=== PATIENT | female | born 1975 ===

== ENCOUNTER 2017-07-28 17:50 | Inpatient (IN) | payer OTHER ==
[2017-07-28 18:35] VITALS: BMI 35.1
[2017-07-28 18:49] LABS: BASO % 0.5 % (0-2.0); EOS % 2.2 % (0-4.5); HEMATOCRIT 33.5 % (32.4-45.2); HEMOGLOBIN 10.9 GM/dL (10.7-15.3); LYMPH % 12.5 % (8-40); MCH 27.9 pg (25.7-33.7); MCHC 32.4 g/dl (32.0-36.0); MEAN CELL VOLUME 85.9 fl (80-96); MEAN PLT VOLUME 9.7 fl (7.5-11.1); MONO % 9.3 % (3.8-10.2); NEUT % 75.5 % (42.8-82.8); PLATELET COUNT 191 K/MM3 (134-434); RDW 15.9 % (11.6-15.6); WHITE BLOOD COUNT 7.2 K/mm3 (4.0-10.0)
--- NOTE | 2017-07-28 19:10 | HP ---
Past Medical History - Admission History of Present Illness: 42 yo @ 40 1/7 wks by first trimester ultrasound, EDC 07/27/2017 complicated by: 1. AMA - s/p reassuring cell free DNA testing, normal AFP 2. 47 lb wt gain in Normal GCT Most recent EFW 3662 gms 8 lbs 1 oz (53%) on 07/27/2017 Patient presents for postdates IOL. She denies complaints. She reports movement, denies leakage of fluid, vaginal bleeding or contractions History Source: Patient Limitations to Obtaining History: No Limitations - Past Medical History Cardiovascular: Yes: HTN Gastrointestinal: No: GERD ...: 5 ...Para: 2 ...Term: 2 ...: 0 ...Spon : 0 ...Induced : 2 ...Multiple Gestation: 0 ...LMP: 10/21/16 ... Weeks Gestation by Dates: 40.0 ...EDC by Dates: 07/28/17 ...EDC by Sono: 07/27/17 Heme/Onc: No: Anemia - Past Surgical History Past Surgical History: No: None Hx Myomectomy: No Hx Transabdominal Cerclage: No - Smoking History Smoking history: Never smoked Have you smoked in the past 12 months: No - Alcohol/Substance Use Hx Alcohol Use: No History of Substance Use: denies: None - Social History History of Recent Travel: No Home Medications - Allergies Allergies/Adverse Reactions: Allergies Allergy/AdvReac Type Severity Reaction Status Date / Time No Known Allergies Allergy Verified 07/28/17 18:35 - Home Medications Home Medications: Ambulatory Orders Pnv No.95/Ferrous Fum/Folic AC [ Vitamin Tablet] 1 each PO DAILY Family Disease History - Family Disease History Family History: Denies Review of Systems - Review of Systems Constitutional: reports: No Symptoms Neck: reports: No Symptoms Cardiovascular: reports: No Symptoms Respiratory: reports: No Symptoms Gastrointestinal: reports: No Symptoms Genitourinary: reports: No Symptoms Integumentary: reports: No Symptoms Neurological: reports: No Symptoms Hematology/Lymphatic: reports: No Symptoms Psychiatric: reports: No Symptoms Physical Exam - Maternity Vital Signs: Vital Signs Temperature 98.4 F 07/28/17 17:50 Pulse Rate 101 H 07/28/17 19:00 Respiratory Rate 20 07/28/17 19:00 Blood Pressure 124/79 07/28/17 19:00 O2 Sat by Pulse Oximetry (%) Constitutional: Yes: Well Nourished, No Distress, Calm Cardiovascular: Yes: Regular Rate and Rhythm Lungs: Clear to auscultation - Abdominal Exam/OB Fundal Height: 40 Number of Fetuses: Single Presentation: Vertex Contractions: No Category: I Accelerations: Non-Uniform Decelerations: None - Vaginal Exam/OB Vaginal Bleediing: No - Physical Exam Psychiatric: Yes: Alert, Oriented - Labs Lab Results: CBC, BMP 07/28/17 18:35 PNL: A positive; antibody negative; RPR NR; HIV neg x 2; Hep B neg; HCV neg; CF/ SMA/Fx neg; GBS neg Hemorrhage Risk Assessment - Risk Factors Medium Risk Factors: Yes: None High Risk Factors: Yes: None Risk Score: 1 Risk Level: Medium Risk Assessment/Plan 42 yo @ 40 1/7 wks for IOL 1. Admit to L&D 2. Consents reviewed and signed. Risks / benefits / alternative / complications discussed including but not limited to induction failure, uterine tachysystole, need for emergent surgery, abruption, bleeding and infection. She expressed understanding and agrees to procedure 3. GBS negative 4. Category I FHT 5. Will proceed with induction
[2017-07-28 19:11] LABS: ANION GAP 7 (8-16); BLOOD UREA NITROGEN 9 mg/dL (7-18); CALCIUM 8.5 mg/dL (8.5-10.1); CHLORIDE 108 mmol/L (98-107); CO2 25 mmol/L (21-32); CREATININE 0.8 mg/dL (0.55-1.02); GLUCOSE,RANDOM 94 mg/dL (74-106); POTASSIUM 4.1 mmol/L (3.5-5.1); SODIUM 140 mmol/L (136-145)
[2017-07-28] MEDS ORDERED: DEXTROSE 5%-LACTATED RINGERS 1,000 ML IV SCH (19:15)
[2017-07-28] MEDS ORDERED: BUTORPHANOL TARTRATE 1 MG/ML VIAL IVPB ONE (19:15)
[2017-07-28] MEDS ORDERED: PROMETHAZINE HCL 25 MG/1 ML VIAL IVPUSH ONE (19:15)
[2017-07-28] MEDS ORDERED: DINOPROSTONE 10 MG VAGINAL SUPPOSITORY VG ONE (19:15)
--- NOTE | 2017-07-28 19:41 | PN ---
Ante-Partal Exam - Subjective Subjective: Patient reports no complaints Vital Signs: Vital Signs Temperature 98.4 F 07/28/17 17:50 Pulse Rate 101 H 07/28/17 19:00 Respiratory Rate 20 07/28/17 19:00 Blood Pressure 124/79 07/28/17 19:00 O2 Sat by Pulse Oximetry (%) Bleeding: No Headache: No Visual changes: No Right upper quadrant pain: No - Contractions Contractions: No - Exam during Labor Heart Rate: 135 Variability: Moderate Category: I Monitor Accelerations: Present Monitor Decelerations: None Exam: Vaginal Dilatation (cm): 1 Effacement (%): 0 Presentation: Vertex Station: -4 - Intrapartum Hemorrhage Risk Medium Risk Factors: None High Risk Factors: None Risk Score: 0 Risk Level: Low Risk - Assessment/Plan Assessment/Plan: 42 yo IOL 1. Cervidil placed in posterior fornix. Patient tolerated well. 2. GBS neg 3. Category I FHT 4. Will offer pain medication upon patient's request
[2017-07-28 19:46] LABS: INR 1.04 (0.82-1.09); PROTHROMBIN TIME (PATIENT) 11.7 SEC (9.7-13.0)
[2017-07-28 19:49] LABS: ACTIVATED PTT 23.3 SECONDS (26.9-34.4)
[2017-07-28] MEDS: LORATADINE 10 MG TABLET PO SCH (20:25)
[2017-07-29] MEDS ORDERED: FENTANYL/BUPIVACAINE/NS/PF - PCEA - 50 ML DISP.SYRIN EP ONE (02:08)
[2017-07-29] MEDS ORDERED: ELECTROLYTE-148 SOLN 500 ML IV ONE (02:17)
[2017-07-29] MEDS ORDERED: NALOXONE HCL 0.4 MG/ML VIAL IVPUSH PRN (03:07)
--- NOTE | 2017-07-29 03:08 | PN ---
Ante-Partal Exam - Subjective Subjective: Pain improved s/p epidural Vital Signs: Vital Signs Temperature 98.2 F 07/29/17 02:00 Pulse Rate 87 07/29/17 02:00 Respiratory Rate 20 07/29/17 02:00 Blood Pressure 118/71 07/29/17 02:00 O2 Sat by Pulse Oximetry (%) Bleeding: Yes (bloody show) Headache: No Visual changes: No Right upper quadrant pain: No - Contractions Contractions: Yes Regularity: Regular Intensity: Mild Monitor Mode: External - Exam during Labor Heart Rate: 130 Variability: Moderate Category: I Monitor Accelerations: Present Monitor Decelerations: None Exam: Vaginal Dilatation (cm): 9 Effacement (%): 100 Amniotic Membrane Status: Ruptured Station: 0 - Intrapartum Hemorrhage Risk Medium Risk Factors: None High Risk Factors: None Risk Score: 0 Risk Level: Low Risk - Assessment/Plan Assessment/Plan: 42 yo IOL postdates 1. Good cervical change, cervidil removed 2. Category I FHT 3. GBS negative 4. s/p epidural for pain relief 5. Will proceed with expectant management
[2017-07-29] MEDS ORDERED: FENTANYL/BUPIVACAINE/NS/PF - PCEA - 50 ML DISP.SYRIN EP SCH (03:15)
[2017-07-29] MEDS ORDERED: OXYTOCIN 20 UNITS in 0.9% NS 20 UNIT/1,000 ML INFUS.BAG IV ONE (03:34)
[2017-07-29] MEDS: OXYTOCIN 20 UNITS in 0.9% NS 20 UNIT/1,000 ML INFUS.BAG IV SCH ×2 (04:05→06:00)
[2017-07-29] MEDS ORDERED: WITCH HAZEL 50% (TUCKS) 40 PAD/JAR PAD TP PRN (04:11)
[2017-07-29] MEDS ORDERED: oxyCODONE HCL 5 MG TABLET PO PRN (04:11)
[2017-07-29] MEDS ORDERED: BISACODYL 10 MG SUPP.RECT RC PRN (04:11)
[2017-07-29] MEDS ORDERED: ACETAMINOPHEN 325 MG TABLET (FP) PO PRN (04:11)
[2017-07-29] MEDS ORDERED: BENZOCAINE 20% 57 GM BOTTLE TP PRN (04:11)
[2017-07-29] MEDS ORDERED: BENZOCAINE 28 GM HEMORRHOIDAL OINTMENT TP PRN (04:11)
[2017-07-29] MEDS ORDERED: METHYLERGONOVINE MALEATE 0.2 MG/1 ML AMP IM PRN (04:11)
--- NOTE | 2017-07-29 04:14 | PN ---
Delivery - Delivery Vaginal Delivery: No Problems Type of Anesthesia: Epidural Episiotomy/Laceration: None EBL (cc): 300 Delivery, Single - Stages of Labor Date 1st Stage Initiatied: 07/29/17 Time 1st Stage Initiated: 01:25 Date 2nd Stage Initiated: 07/29/17 Time 2nd Stage Initiated: 03:50 Date of Delivery: 07/29/17 Time of Delivery: 03:59 Date Placenta Delivered: 07/29/17 Time Placenta Delivered: 04:05 Placenta: Yes: Spontaneous - Condition of Infant Gender: Male Position: Left, OA Total Hours ROM (Hrs/Mins): 2 hours 40 minutes - 1 Minute Total Score: 9 5 Minutes Total Score: 9 - [place] Feeding Plan Initial Plan: Exclusive throughout hospitalization Remarks - Remarks Remarks: Patient progressed to fully dilated and at 0359 via delivered a viable male in BRANDI position, APGARs 9,9. Weight and length unknown at this time. Head delivered spontaneously followed by shoulders and body without difficulty. with spontaneous cry and placed on mother's abdomen. Nose and mouth was bulb suctioned. Cord was clamped and cut. Perineum and vagina examined, no lacerations were noted Placenta was delivered spontaneously and intact. 20 units of pitocin in 1 L IVF was given. All counts correct x 2. Mother and infant stable in LDR. EBL 300cc.
[2017-07-29] MEDS: PRENATAL VITAMINS W/ FOLIC ACID TABLET (FP) PO SCH (09:03)
[2017-07-29] MEDS: IBUPROFEN 600 MG TABLET (FP) PO PRN ×2 (09:03→14:55)
[2017-07-29] MEDS: LORATADINE 10 MG TABLET PO SCH (09:04)
[2017-07-30 07:24] LABS: BASO % 0.4 % (0-2.0); EOS % 2.6 % (0-4.5); HEMATOCRIT 29.2 % (32.4-45.2); HEMOGLOBIN 9.6 GM/dL (10.7-15.3); LYMPH % 18.4 % (8-40); MCH 28.7 pg (25.7-33.7); MCHC 32.9 g/dl (32.0-36.0); MEAN CELL VOLUME 87.3 fl (80-96); MEAN PLT VOLUME 9.9 fl (7.5-11.1); MONO % 11.5 % (3.8-10.2); NEUT % 67.1 % (42.8-82.8); PLATELET COUNT 164 K/MM3 (134-434); RBC 3.34 M/mm3 (3.60-5.2); WHITE BLOOD COUNT 8.7 K/mm3 (4.0-10.0)
--- NOTE | 2017-07-30 08:22 | PN ---
Post Progress Note - Subjective Subjective: Patient without acute complaints. Reports tolerating oral intake without nausea or vomiting. Ambulating without dizziness. Denies fevers or chills. Pain well controlled with oral pain medication. without difficulty. Passing flatus. Post Day: 1 Type of Delivery: Vital Signs: Vital Signs Temperature 98.1 F 07/30/17 02:00 Pulse Rate 88 07/30/17 02:00 Respiratory Rate 18 07/30/17 02:00 Blood Pressure 110/58 07/30/17 02:00 O2 Sat by Pulse Oximetry (%) 100 07/29/17 03:50 Breast Exam: Yes: Soft. No: Cracked Nipples Uterus: Yes: Fundus Firm, Fundus below umbilicus Abdomen/GI: Yes: Abdomen soft, Passing flatus, Tolerating PO. No: Abdominal Distention, Tender Lochia: Yes: Serosa Lochia, amount: Small Extremities: Yes: Calves non-tender, Edema (trace) Activity: Ambulating - Labs Labs: CBC WBC 8.7 K/mm3 (4.0-10.0) 07/30/17 06:40 RBC 3.34 M/mm3 (3.60-5.2) L 07/30/17 06:40 Hgb 9.6 GM/dL (10.7-15.3) L D 07/30/17 06:40 Hct 29.2 % (32.4-45.2) L 07/30/17 06:40 MCV 87.3 fl (80-96) 07/30/17 06:40 MCH 28.7 pg (25.7-33.7) 07/30/17 06:40 MCHC 32.9 g/dl (32.0-36.0) 07/30/17 06:40 RDW 16.0 % (11.6-15.6) H 07/30/17 06:40 Plt Count 164 K/MM3 (134-434) 07/30/17 06:40 MPV 9.9 fl (7.5-11.1) 07/30/17 06:40 Neutrophils % 67.1 % (42.8-82.8) 07/30/17 06:40 Lymphocytes % 18.4 % (8-40) D 07/30/17 06:40 Monocytes % 11.5 % (3.8-10.2) H 07/30/17 06:40 Eosinophils % 2.6 % (0-4.5) 07/30/17 06:40 Basophils % 0.4 % (0-2.0) 07/30/17 06:40 Nucleated RBC % 0 % (0-0) 07/30/17 06:40 Assessment/Plan 42 yo PPD # 1 s/p , afebrile, vital signs stable, doing well 1. Continue routine care. 2. AM CBC with mild asymptomatic anemia 3. Rh positive status, no rhogam indicated. 4. Encourage ambulation 5. Continue oral pain medication 6. Anticipate discharge home day #2
[2017-07-30] MEDS: guaiFENesin 200 MG/10 ML 10 ML UNIT-DOSE CUPS PO PRN ×3 (09:38→20:43)
[2017-07-30] MEDS: PRENATAL VITAMINS W/ FOLIC ACID TABLET (FP) PO SCH (09:39)
[2017-07-30] MEDS: IBUPROFEN 600 MG TABLET (FP) PO PRN ×2 (09:39→15:40)
[2017-07-30] MEDS: FLUTICASONE PROP 0.05% 16 GM NASAL SPRAY NS SCH (09:46)
[2017-07-30] MEDS: OXYTOCIN 20 UNITS in 0.9% NS 20 UNIT/1,000 ML INFUS.BAG IV SCH (14:18)
--- NOTE | 2017-07-30 17:16 | PN ---
Progress Note (short form) - Note Progress Note: Patient states desires circumcision for . Discussed risks including infection, bleeding, damage to tip of penis, and unsatisfactory result, resulting in surgical repair or repeat circumcision. Patient expressed understanding and consents to procedure. Reviewed infants chart, normal genitalia per physician assistant psychiatry, Dr. St
[2017-07-30] MEDS ORDERED: SENNOSIDES/DOCUSATE COMBO (SENNA PLUS) TABLET (UD) PO PRN (22:00)
[2017-07-31] MEDS: guaiFENesin 200 MG/10 ML 10 ML UNIT-DOSE CUPS PO PRN ×2 (02:44→12:16)
[2017-07-31 08:43] VITALS: BP 108/72; PULSE 79; TEMP 98.6
[2017-07-31] MEDS: FLUTICASONE PROP 0.05% 16 GM NASAL SPRAY NS SCH (09:09)
[2017-07-31] MEDS: IBUPROFEN 600 MG TABLET (FP) PO PRN (09:10)
[2017-07-31] MEDS: PRENATAL VITAMINS W/ FOLIC ACID TABLET (FP) PO SCH (09:11)
--- NOTE | 2017-08-15 13:53 | DS ---
Physical Exam-EPIC BEACON ANALYST Vital Signs: Vital Signs Temperature 98.6 F 07/31/17 08:41 Pulse Rate 79 07/31/17 08:41 Respiratory Rate 20 07/31/17 08:41 Blood Pressure 108/72 07/31/17 08:41 O2 Sat by Pulse Oximetry (%) 100 07/29/17 03:50 Labs: CBC, BMP 07/30/17 06:40 07/28/17 18:35 Delivery - Delivery Vaginal Delivery: No Problems Type of Anesthesia: Epidural Episiotomy/Laceration: None, Left Mediolateral EBL (cc): 400 Delivery, Single - Stages of Labor Date 1st Stage Initiatied: 07/29/17 Time 1st Stage Initiated: 01:25 Date 2nd Stage Initiated: 07/29/17 Time 2nd Stage Initiated: 03:50 Date of Delivery: 07/29/17 Time of Delivery: 03:59 Time Placenta Delivered: 04:05 Placenta: Yes: Spontaneous - Condition of Infant Manager Of Marketing/Indirect Sales Exec Present: No Gender: Male Weight: 7 lb 12 oz Position: Left, OA Total Hours ROM (Hrs/Mins): [id number] - 1 Minute Total Score: 9 5 Minutes Total Score: 9 - Feeding Plan Initial Plan: Exclusive throughout hospitalization Discharge Summary Reason For Visit: INDUCTION OF LABOR ADMIT Procedures: Principal: vaginal deilvery Other Procedures: induction of labor Hospital Course: patient presented for IOL s/p cervidil, progressed and delivered via She fulfilled all criteria for DC home PPD #2 Condition: Good - Instructions Diet, Activity, Other Instructions: Physical activity Resume your normal everyday activity as tolerated no heavy lifting or exercise until seen by your surgeon. You may walk unlimited arnol of and climb stairs. You may resume driving the car when you feel safe and comfortable behind the wheel. No sexual activity as instructed. Diet There are no dietary restrictions. Eat healthy, high-fiber foods. Drink 6 to 8 glasses of liquid each day. This will assist in keeping your bowels are regular. Pain management You may take Tylenol or acetaminophen or Ibuprofen (for example, Motrin, Advil etc.) from my pain prescription medication is ordered should be taken as prescribed for moderate to severe pain. Call MD for any of the following: Severe pain not relieved by medication Fever of 101 or higher Excessive bleeding or drainage on dressing Inability to urinate Referrals: Amanda Zhu MD [Staff Physician] - Disposition: HOME - Home Medications Comprehensive Discharge Medication List: Ambulatory Orders Pnv No.95/Ferrous Fum/Folic AC [ Vitamin Tablet] 1 each PO DAILY
== END 2017-07-31 12:30 | disposition home or self-care (01) | DRG 774 ==
LOC: JLDR 17:50 → J3W 07-29 08:01
PROVIDERS: ADMIT Obstetrics & Gynecology; ATTEND Obstetrics & Gynecology
PROC: 10E0XZZ Delivery of Products of Conception, External Approach (ICD-10-PCS; principal; 2017-07-29)
DX: O48.0 Post-term pregnancy (principal); O10.013 Pre-existing essential hypertension complicating pregnancy, third trimester; Z37.0 Single live birth; Z3A.40 40 weeks gestation of pregnancy
CPT/HCPCS: 36415; 59409; 80048; 85025; 85610; 85730; 86593; 86850; 86900; 86901

== ENCOUNTER 2019-02-28 10:50 | Inpatient (IN) | payer OTHER ==
[2019-02-28] MEDS ORDERED: DINOPROSTONE 10 MG VAGINAL SUPPOSITORY VG ONE (12:15)
[2019-02-28 12:16] LABS: BASO % 0.1 % (0-2.0); EOS % 0.3 % (0-4.5); HEMATOCRIT 33.6 % (32.4-45.2); HEMOGLOBIN 10.9 GM/dL (10.7-15.3); LYMPH % 18.5 % (8-40); MCH 28.2 pg (25.7-33.7); MCHC 32.4 g/dl (32.0-36.0); MEAN PLT VOLUME 10.4 fl (7.5-11.1); MONO % 8.3 % (3.8-10.2); NEUT % 72.8 % (42.8-82.8); PLATELET COUNT 201 K/MM3 (134-434); RBC 3.86 M/mm3 (3.60-5.2); RDW 15.1 % (11.6-15.6); WHITE BLOOD COUNT 6.5 K/mm3 (4.0-10.0)
[2019-02-28 12:28] VITALS: BMI 35.1
[2019-02-28 12:29] LABS: INR 1.04 (0.83-1.09); PROTHROMBIN TIME (PATIENT) 12.3 SEC (9.7-13.0)
[2019-02-28 12:31] LABS: ACTIVATED PTT 25.6 SECONDS (25.2-36.5)
[2019-02-28 12:44] LABS: BLOOD UREA NITROGEN 6.2 mg/dL (7-18); CREATININE 0.6 mg/dL (0.55-1.3); POTASSIUM 4.4 mmol/L (3.5-5.1)
--- NOTE | 2019-02-28 15:00 | PN ---
Progress Note (short form) - Note Progress Note: 1420 cx 2 cm 50 vx -3 mi, fhr cat 1, no contraction , cervidil risks discusssed , cervidil ibnserted
--- NOTE | 2019-02-28 15:02 | HP ---
Past Medical History - Primary Care Physician PCP:: Manjit Hernandez - Admission Chief Complaint: 39 weeks, AMA ,request of induction History of Present Illness: 43 yo f 39.4 weeks , cx 2 cm 50 vx -3 mi, fhr cat 1, no contraction, risks associated with induction and cervidil discussed History Source: Patient Limitations to Obtaining History: No Limitations - Past Medical History Cardiovascular: Yes: HTN ...: 5 ...Para: 3 ...Term: 3 ...Spon : 1 ...LMP: 05/27/18 ... Weeks Gestation by Dates: 39.4 ...EDC by Dates: 03/03/19 ...EDC by Sono: 03/02/19 - Past Surgical History Hx Myomectomy: No Hx Transabdominal Cerclage: No - Smoking History Smoking history: Never smoked Have you smoked in the past 12 months: No - Alcohol/Substance Use Hx Alcohol Use: No - Social History History of Recent Travel: No Home Medications - Allergies Allergies/Adverse Reactions: Allergies Allergy/AdvReac Type Severity Reaction Status Date / Time No Known Allergies Allergy Verified 02/15/19 11:16 - Home Medications Home Medications: Ambulatory Orders Famotidine [Pepcid] 20 mg PO PRN PRN 02/13/19 Review of Systems - Review of Systems Constitutional: reports: No Symptoms Eyes: reports: No Symptoms HENT: reports: No Symptoms Neck: reports: No Symptoms Cardiovascular: reports: No Symptoms Respiratory: reports: No Symptoms Gastrointestinal: reports: No Symptoms Genitourinary: reports: No Symptoms Breasts: reports: No Symptoms Reported Musculoskeletal: reports: No Symptoms Integumentary: reports: No Symptoms Neurological: reports: No Symptoms Endocrine: reports: No Symptoms Hematology/Lymphatic: reports: No Symptoms Psychiatric: reports: No Symptoms Physical Exam - Maternity Vital Signs: Vital Signs Temperature 98.5 F 02/28/19 13:00 Pulse Rate 75 02/28/19 13:00 Respiratory Rate 20 02/28/19 13:00 Blood Pressure 108/71 02/28/19 13:00 O2 Sat by Pulse Oximetry (%) Constitutional: Yes: Well Nourished, No Distress, Calm Eyes: Yes: WNL, Conjunctiva Clear, EOM Intact HENT: Yes: WNL, Atraumatic, Normocephalic Neck: Yes: WNL, Supple, Trachea Midline Cardiovascular: Yes: WNL, Regular Rate and Rhythm Breast(s): Yes: WNL - Abdominal Exam/OB Fundal Height: 40 Number of Fetuses: Single Presentation: Vertex Contractions: Yes Intensity: Unaware Monitor Mode: External Heart Rate Location: [facility] Category: I Accelerations: Non-Uniform Decelerations: None - Vaginal Exam/OB Speculum Exam: No Dilatation (cm): 2 cm Effacement (%): 50 Amniotic Membrane Status: Intact Presentation: Vertex/Position Station: -3 - Physical Exam Musculoskeletal: Yes: WNL Extremities: Yes: WNL Edema: Yes Edema: LLE: Trace, RLE: Trace Deep Tendon Reflex Grade: Normal +2 ...Motor Strength: WNL Psychiatric: Yes: WNL - Labs Lab Results: CBC, BMP 02/28/19 11:30 02/28/19 11:30 Hemorrhage Risk Assessment - Risk Factors Medium Risk Factors: Yes: None High Risk Factors: Yes: None Risk Score: 1 Risk Level: Medium Risk Problem List - Problems (1) with 39 completed weeks gestation Code(s): Z3A.39 - 39 WEEKS GESTATION OF (2) AMA (advanced maternal age) primigravida 35+ Code(s): O09.519 - SUPERVISION OF ELDERLY PRIMIGRAVIDA, UNSPECIFIED TRIMESTER Qualifiers: Trimester: third trimester Qualified Code(s): O09.513 - Supervision of elderly primigravida, third trimester Assessment/Plan admit for cervidil induction, FHM GBS negative
[2019-02-28] MEDS ORDERED: OXYTOCIN 10 UNITS/ML VIAL IM ONE ×2 (19:15)
[2019-02-28] MEDS: D5W-LR W/ 20 UNITS OXYTOCIN 20 UNIT/1,000 ML INFUS.BAG IV SCH ×2 (19:15→21:00)
[2019-02-28] MEDS ORDERED: OXYTOCIN 10 UNITS/ML VIAL ONE (19:17)
[2019-02-28] MEDS ORDERED: OXYTOCIN 20 UNITS in 0.9% NS 20 UNIT/1,000 ML INFUS.BAG IV ONE ×3 (19:21→22:33)
[2019-02-28] MEDS ORDERED: BENZOCAINE 28 GM HEMORRHOIDAL OINTMENT TP PRN (19:41)
[2019-02-28] MEDS ORDERED: METHYLERGONOVINE MALEATE 0.2 MG/1 ML AMP IM PRN (19:41)
[2019-02-28] MEDS ORDERED: BISACODYL 10 MG SUPP.RECT RC PRN (19:41)
[2019-02-28] MEDS ORDERED: WITCH HAZEL 50% (TUCKS) 40 PAD/JAR PAD TP PRN (19:41)
[2019-02-28] MEDS ORDERED: BENZOCAINE 20% 57 GM BOTTLE TP PRN (19:41)
--- NOTE | 2019-02-28 19:45 | PN ---
Delivery - Delivery Vaginal Delivery: Spontaneous Type of Anesthesia: None Episiotomy/Laceration: None (cx full , head delivered, amharic, no cord ant. and post, shoulder with no difficulty , live baby boy , 9/9 , placenta complete, no laceration, ebl 300cc , no complication, baby bonded with mom and dad) Delivery, Single - [place] Feeding Plan Initial Plan: Elected not to breastfeed exclusively throughout hospitalization
[2019-02-28] MEDS ORDERED: oxyCODONE HCL 5 MG TABLET PO ONE (20:15)
[2019-02-28] MEDS ORDERED: ACETAMINOPHEN 325 MG TABLET (FP) PO ONE (20:15)
[2019-02-28] MEDS ORDERED: oxyCODONE HCL 5 MG TABLET ONE (20:47)
[2019-03-01] MEDS: IBUPROFEN 600 MG TABLET (FP) PO PRN ×3 (00:13→09:05)
[2019-03-01] MEDS: ACETAMINOPHEN 325 MG TABLET (FP) PO PRN ×3 (00:14→09:07)
[2019-03-01 07:43] LABS: BASO % 0.4 % (0-2.0); EOS % 0.4 % (0-4.5); HEMATOCRIT 32.4 % (32.4-45.2); HEMOGLOBIN 10.5 GM/dL (10.7-15.3); LYMPH % 16.6 % (8-40); MCH 28.1 pg (25.7-33.7); MCHC 32.4 g/dl (32.0-36.0); MEAN CELL VOLUME 86.7 fl (80-96); MEAN PLT VOLUME 10.4 fl (7.5-11.1); MONO % 10.3 % (3.8-10.2); NEUT % 72.3 % (42.8-82.8); PLATELET COUNT 182 K/MM3 (134-434); RBC 3.73 M/mm3 (3.60-5.2); RDW 14.8 % (11.6-15.6); WHITE BLOOD COUNT 8.7 K/mm3 (4.0-10.0)
--- NOTE | 2019-03-01 07:48 | PN ---
Progress Note (short form) - Note Progress Note: ppd 1 no c/o , voids ok , no excess vaginal bleeding CBC, BMP 02/28/19 11:30 Last Vital Signs Temp Pulse Resp BP Pulse Ox 98.0 F 64 20 102/62 03/01/19 05:42 03/01/19 05:42 03/01/19 05:42 03/01/19 05:42 abdomen soft, uterus firm, non tender loachia mild no calf tenderness prenium clean plan ambulate, cbc , plan for d/c home in am Problem List - Problems (1) with 39 completed weeks gestation Code(s): Z3A.39 - 39 WEEKS GESTATION OF (2) AMA (advanced maternal age) primigravida 35+ Code(s): O09.519 - SUPERVISION OF ELDERLY PRIMIGRAVIDA, UNSPECIFIED TRIMESTER Qualifiers: Trimester: third trimester Qualified Code(s): O09.513 - Supervision of elderly primigravida, third trimester
[2019-03-01] MEDS: FERROUS SO4 325 MG TABLET (FP) PO SCH ×2 (08:35→17:42)
[2019-03-01] MEDS: PRENATAL VITAMINS W/ FOLIC ACID TABLET (FP) PO SCH (09:34)
[2019-03-01 21:45] VITALS: BP 107/63; PULSE 82; TEMP 97.7
[2019-03-01] MEDS ORDERED: SENNOSIDES/DOCUSATE COMBO (SENNA PLUS) TABLET (UD) PO PRN (22:00)
[2019-03-02] MEDS: FERROUS SO4 325 MG TABLET (FP) PO SCH (08:55)
[2019-03-02] MEDS: PRENATAL VITAMINS W/ FOLIC ACID TABLET (FP) PO SCH (10:45)
--- NOTE | 2019-03-02 10:46 | DS ---
Physical Exam-CLOTHES WRINGER Vital Signs: Vital Signs Temperature 97.7 F 03/01/19 21:44 Pulse Rate 82 03/01/19 21:44 Respiratory Rate 20 03/01/19 21:44 Blood Pressure 107/63 03/01/19 21:44 O2 Sat by Pulse Oximetry (%) Constitutional: Yes: Well Nourished, No Distress, Calm Eyes: Yes: WNL, Conjunctiva Clear, EOM Intact HENT: Yes: WNL, Atraumatic, Normocephalic Neck: Yes: WNL, Supple, Trachea Midline Cardiovascular: Yes: WNL, Regular Rate and Rhythm Respiratory: Yes: WNL, Regular, CTA Bilaterally Gastrointestinal: Yes: WNL ...Rectal Exam: Yes: WNL Renal/: Yes: WNL ....Post : Yes: Uterus firm, Uterus non-tender, Slight lochia rubra Breast(s): Yes: WNL Musculoskeletal: Yes: WNL Extremities: Yes: WNL Edema: No Integumentary: Yes: WNL Neurological: Yes: WNL, Alert, Oriented ...Motor Strength: WNL Psychiatric: Yes: WNL, Alert, Oriented Labs: CBC, BMP 03/01/19 07:12 02/28/19 11:30 Delivery - Delivery Vaginal Delivery: Spontaneous (no complication) Type of Anesthesia: None Episiotomy/Laceration: None EBL (cc): 300 Delivery, Single - Stages of Labor Date 1st Stage Initiatied: 02/28/19 Time 1st Stage Initiated: 18:50 Date 2nd Stage Initiated: 02/28/19 Time 2nd Stage Initiated: 19:10 Date of Delivery: 02/28/19 Time of Delivery: 19:12 Time Placenta Delivered: 19:15 Placenta: Yes: Spontaneous - Condition of Infant Hospital Admitting Clerk/Freight Weigher Present: No Gender: Male Weight: 7 lb 6 oz Position: Right, OA Total Hours ROM (Hrs/Mins): 2MIN - 1 Minute Total Score: 9 5 Minutes Total Score: 9 - [place] Feeding Plan Initial Plan: Elected not to breastfeed exclusively throughout hospitalization Discharge Summary Problems reviewed: Yes Reason For Visit: ADMISSSION OF LABOR Current Active Problems AMA (advanced maternal age) primigravida 35+ (Acute) with 39 completed weeks gestation (Acute) Procedures: Principal: Other Procedures: none Hospital Course: no complication Health Concerns: obesity Plan of Treatment: wt loss, exercise Goals: normal BMI Condition: Stable - Instructions Diet, Activity, Other Instructions: regular diet, no intercourse , follow up office 4 weeks,if fever, pain, heavy vaginal bleeding call MD Referrals: Manjit Hernandez MD [Staff Physician] - Disposition: HOME - Home Medications Comprehensive Discharge Medication List: Ambulatory Orders Famotidine [Pepcid] 20 mg PO PRN PRN 02/13/19 Ibuprofen [Motrin -] 600 mg PO QID #28 tablet 03/01/19
== END 2019-03-02 14:55 | disposition home or self-care (01) | DRG 807 ==
LOC: JLDR 10:50 → J3W 23:30
PROVIDERS: ADMIT Obstetrics & Gynecology; ATTEND Obstetrics & Gynecology
PROC: 10E0XZZ Delivery of Products of Conception, External Approach (ICD-10-PCS; principal; 2019-02-28)
DX: O80 Encounter for full-term uncomplicated delivery (principal); Z37.0 Single live birth; Z3A.39 39 weeks gestation of pregnancy
CPT/HCPCS: 36415; 36600; 59409; 80048; 82803; 85025; 85610; 85730; 86593; 86850; 86900; 86901